=== PATIENT | female | born 1990 | race Caucasian/White ===

== ENCOUNTER 2017-06-16 19:08 | Emergency (ER) | payer MEDICAID ==
[~2017-06-16] VITALS: Ht 149.9 cm; Wt 77.6 kg
[2017-06-16 19:25] VITALS: Ht 149.9 cm; Wt 77.6 kg
[2017-06-16 20:59] LABS: PLATELET COUNT 229 x10^3mcL (130-400); RED CELL DISTRIBUTION WIDTH 12.5 % (11.5-14.5)
[2017-06-16 21:05] LABS: BASOPHIL % 2.3 % (0-2)
[2017-06-16 21:09] LABS: CARBON DIOXIDE 27.6 mmol/L (21-32); CHLORIDE SERUM 105 mmol/L (98-107); CREATININE SERUM 0.8 mg/dL (0.6-1.0); GFR1 > 60 mL/min; GLUCOSE SERUM 107 mg/dL (74-106); POTASSIUM SERUM 3.8 mmol/L (3.5-5.1); SODIUM SERUM 142 mmol/L (136-145)
[2017-06-16 21:15] LABS: ALBUMIN 3.7 g/dL (3.4-5.0); ALKALINE PHOSPHATASE 72 U/L (46-116); ALT/SGPT 65 U/L (14-59); AST/SGOT 35 U/L (15-37); BILIRUBIN TOTAL 0.2 mg/dL (0.20-1.00); TOTAL PROTEIN, SERUM 7.4 g/dL (6.4-8.2)
[2017-06-16 21:51] VITALS: BP 126/86
== END 2017-06-16 21:51 | disposition home or self-care (01) ==
LOC: ED 19:08
PROVIDERS: Emergency Medicine
DX: K62.5 Hemorrhage of anus and rectum (principal); S30.0XXA Contusion of lower back and pelvis, initial encounter; X58.XXXA Exposure to other specified factors, initial encounter; Y93.89 Activity, other specified; Y92.89 Other specified places as the place of occurrence of the external cause; Y99.8 Other external cause status
CPT/HCPCS: 36415

== ENCOUNTER 2017-07-22 01:03 | Emergency (ER) | payer MEDICAID ==
[~2017-07-22] VITALS: Ht 149.9 cm; Wt 78.1 kg
[2017-07-22 01:12] VITALS: Ht 149.9 cm; Wt 78.1 kg
[2017-07-22 03:06] LABS: CALCIUM 8.7 mg/dL (8.5-10.1); CARBON DIOXIDE 22.5 mmol/L (21-32); CHLORIDE SERUM 105 mmol/L (98-107); CREATININE SERUM 0.6 mg/dL (0.6-1.0); GFR1 > 60 mL/min; GLUCOSE SERUM 116 mg/dL (74-106); POTASSIUM SERUM 3.7 mmol/L (3.5-5.1); SODIUM SERUM 140 mmol/L (136-145)
[2017-07-22 03:10] LABS: ALBUMIN 3.5 g/dL (3.4-5.0); ALKALINE PHOSPHATASE 70 U/L (46-116); ALT/SGPT 67 U/L (14-59); AMYLASE 37 U/L (25-115); AST/SGOT 36 U/L (15-37); BILIRUBIN TOTAL 0.17 mg/dL (0.20-1.00); LIPASE 110 IU/L (73-393); TOTAL PROTEIN, SERUM 6.9 g/dL (6.4-8.2)
[2017-07-22 03:21] LABS: UA SPECIFIC GRAVITY <=1.005 (1.005-1.035); microscopic required? YES; urine erythrocyte NEGATIVE (NEGATIVE)
[2017-07-22 03:24] LABS: RED CELL DISTRIBUTION WIDTH 11.8 % (11.5-14.5)
[2017-07-22 03:29] LABS: BASOPHIL % 1.8 % (0-2); PLATELET COUNT 196 x10^3mcL (130-400)
[2017-07-22 03:50] LABS: AMPHETAMINE QUAL UR NONE DETECTED (NEG <=1000)
[2017-07-22 05:27] VITALS: BP 122/80
== END 2017-07-22 05:27 | disposition home or self-care (01) ==
LOC: ED 01:03
PROVIDERS: Emergency Medicine
DX: R51 Headache (principal); R10.12 Left upper quadrant pain; R11.10 Vomiting, unspecified; R20.0 Anesthesia of skin; J45.909 Unspecified asthma, uncomplicated; M54.5 Low back pain
CPT/HCPCS: 83880; J2405; J2550; J3010; J7030

== ENCOUNTER 2017-08-08 20:02 | Emergency (ER) | payer MEDICAID ==
[~2017-08-08] VITALS: Ht 154.9 cm; Wt 78.1 kg
[2017-08-08 20:24] VITALS: Ht 154.9 cm; Wt 78.1 kg
[2017-08-08 21:11] VITALS: BP 129/84
== END 2017-08-08 21:11 | disposition home or self-care (01) ==
LOC: ED 20:02
DX: S00.03XA Contusion of scalp, initial encounter (principal); J45.909 Unspecified asthma, uncomplicated; W19.XXXA Unspecified fall, initial encounter; Y93.89 Activity, other specified; Y92.89 Other specified places as the place of occurrence of the external cause; Y99.8 Other external cause status

== ENCOUNTER 2017-12-07 22:24 | Emergency (ER) | payer MEDICAID ==
[~2017-12-07] VITALS: Ht 152.4 cm; Wt 79.4 kg
[2017-12-07 22:25] VITALS: Ht 152.4 cm; Wt 79.4 kg
[2017-12-07 23:08] LABS: BASOPHIL % 0.2 % (0-2); PLATELET COUNT 194 x10^3mcL (130-400); RED CELL DISTRIBUTION WIDTH 12.8 % (11.5-14.5)
[2017-12-07 23:13] LABS: CALCIUM 8.4 mg/dL (8.5-10.1); CARBON DIOXIDE 24.7 mmol/L (21-32); CHLORIDE SERUM 101 mmol/L (98-107); CREATININE SERUM 0.7 mg/dL (0.6-1.0); GFR1 > 60 mL/min; GLUCOSE SERUM 114 mg/dL (74-106); POTASSIUM SERUM 3.5 mmol/L (3.5-5.1); SODIUM SERUM 137 mmol/L (136-145)
[2017-12-07 23:17] LABS: ALBUMIN 3.8 g/dL (3.4-5.0); ALKALINE PHOSPHATASE 74 U/L (46-116); ALT/SGPT 128 U/L (14-59); AST/SGOT 70 U/L (15-37); BILIRUBIN TOTAL 0.3 mg/dL (0.20-1.00); LIPASE 80 IU/L (73-393); TOTAL PROTEIN, SERUM 7.4 g/dL (6.4-8.2)
[2017-12-07 23:42] LABS: UA SPECIFIC GRAVITY >=1.030 (1.005-1.035); microscopic required? YES; urine erythrocyte 1+ (NEGATIVE)
[2017-12-08 02:07] VITALS: BP 122/76
== END 2017-12-08 02:07 | disposition home or self-care (01) ==
LOC: ED 22:24
PROVIDERS: Emergency Medicine
DX: R10.13 Epigastric pain (principal); R11.2 Nausea with vomiting, unspecified; N76.0 Acute vaginitis; J45.909 Unspecified asthma, uncomplicated
CPT/HCPCS: J1885; J2405; J3490; J7030; Q0092

== ENCOUNTER 2018-01-24 16:56 | Emergency (ER) | payer MEDICAID ==
[~2018-01-24] VITALS: Ht 152.4 cm; Wt 79.4 kg
[2018-01-24 17:11] VITALS: Ht 152.4 cm; Wt 79.4 kg
[2018-01-24 17:46] LABS: BASOPHIL % 0.1 % (0-2); PLATELET COUNT 226 x10^3mcL (130-400); RED CELL DISTRIBUTION WIDTH 12.7 % (11.5-14.5)
[2018-01-24 17:55] LABS: CALCIUM 9.3 mg/dL (8.5-10.1); CARBON DIOXIDE 27.7 mmol/L (21-32); CHLORIDE SERUM 102 mmol/L (98-107); CREATININE SERUM 0.6 mg/dL (0.6-1.0); GFR1 > 60 mL/min; GLUCOSE SERUM 127 mg/dL (74-106); POTASSIUM SERUM 3.7 mmol/L (3.5-5.1); SODIUM SERUM 140 mmol/L (136-145)
[2018-01-24 17:59] LABS: ALKALINE PHOSPHATASE 92 U/L (46-116); ALT/SGPT 175 U/L (14-59); AST/SGOT 90 U/L (15-37); BILIRUBIN TOTAL 0.3 mg/dL (0.20-1.00); LIPASE 116 IU/L (73-393)
[2018-01-24 18:03] LABS: TOTAL PROTEIN, SERUM 8.4 g/dL (6.4-8.2)
[2018-01-24 19:00] VITALS: BP 134/52
== END 2018-01-24 19:00 | disposition home or self-care (01) ==
LOC: ED 16:56
PROVIDERS: Emergency Medicine
DX: R10.11 Right upper quadrant pain (principal); R51 Headache; J45.909 Unspecified asthma, uncomplicated
CPT/HCPCS: J1885; J2765

== ENCOUNTER 2018-03-29 17:53 | Emergency (ER) | payer MEDICAID ==
[~2018-03-29] VITALS: Ht 152.4 cm; Wt 76.2 kg
[2018-03-29 18:25] VITALS: Ht 152.4 cm; Wt 76.2 kg
[2018-03-29 20:28] LABS: UA SPECIFIC GRAVITY >=1.030 (1.005-1.035); microscopic required? YES; urine erythrocyte 3+ (NEGATIVE)
[2018-03-29 20:29] LABS: CALCIUM 8.9 mg/dL (8.5-10.1); CARBON DIOXIDE 29.7 mmol/L (21-32); CHLORIDE SERUM 102 mmol/L (98-107); CREATININE SERUM 0.7 mg/dL (0.6-1.0); GFR1 > 60 mL/min; GLUCOSE SERUM 83 mg/dL (74-106); POTASSIUM SERUM 3.4 mmol/L (3.5-5.1); SODIUM SERUM 139 mmol/L (136-145)
[2018-03-29 20:34] LABS: BASOPHIL % 0.4 % (0-2); PLATELET COUNT 211 x10^3mcL (130-400); RED CELL DISTRIBUTION WIDTH 12.8 % (11.5-14.5)
[2018-03-29 22:20] VITALS: BP 143/69
== END 2018-03-29 22:20 | disposition home or self-care (01) ==
LOC: ED 17:53
PROVIDERS: Specialist
DX: O23.41 Unspecified infection of urinary tract in pregnancy, first trimester (principal); O20.8 Other hemorrhage in early pregnancy; O99.511 Diseases of the respiratory system complicating pregnancy, first trimester; J45.909 Unspecified asthma, uncomplicated; G43.909 Migraine, unspecified, not intractable, without status migrainosus; Z3A.01 Less than 8 weeks gestation of pregnancy
CPT/HCPCS: 36415

== ENCOUNTER 2018-06-28 16:34 | Emergency (ER) | payer MEDICAID ==
[~2018-06-28] VITALS: Ht 152.4 cm; Wt 73.5 kg
[2018-06-28 16:51] VITALS: Ht 152.4 cm; Wt 73.5 kg
[2018-06-28 19:35] VITALS: BP 117/65
== END 2018-06-28 19:35 | disposition home or self-care (01) ==
LOC: ED 16:34
DX: R07.89 Other chest pain (principal); R20.2 Paresthesia of skin; J45.909 Unspecified asthma, uncomplicated; G43.909 Migraine, unspecified, not intractable, without status migrainosus; Z88.6 Allergy status to analgesic agent
CPT/HCPCS: 36415; 85378

== ENCOUNTER 2019-03-21 15:34 | Emergency (ER) | payer MEDICAID ==
[~2019-03-21] VITALS: Ht 152.4 cm; Wt 81.2 kg
[2019-03-21 15:45] VITALS: Ht 152.4 cm; Wt 81.2 kg
[2019-03-21 17:54] VITALS: BP 139/90
== END 2019-03-21 17:54 | disposition home or self-care (01) ==
LOC: ED 15:34
DX: L29.9 Pruritus, unspecified (principal); G43.909 Migraine, unspecified, not intractable, without status migrainosus; J45.909 Unspecified asthma, uncomplicated; Z88.6 Allergy status to analgesic agent

== ENCOUNTER 2019-04-19 18:50 | Inpatient (IN) | payer MEDICAID ==
[~2019-04-19] VITALS: Ht 152.4 cm; Wt 82.6 kg
[2019-04-19 20:06] VITALS: Ht 152.4 cm; Wt 82.6 kg
[2019-04-19 20:51] LABS: PLATELET COUNT 233 x10^3mcL (130-400); RED CELL DISTRIBUTION WIDTH 12.7 % (11.5-14.5)
[2019-04-19 21:17] LABS: CALCIUM 8.8 mg/dL (8.5-10.1); CARBON DIOXIDE 27.1 mmol/L (21-32); CHLORIDE SERUM 104 mmol/L (98-107); CREATININE SERUM 0.7 mg/dL (0.6-1.0); GFR1 > 60 mL/min; GLUCOSE SERUM 108 mg/dL (74-106); POTASSIUM SERUM 3.8 mmol/L (3.5-5.1); SODIUM SERUM 137 mmol/L (136-145)
[2019-04-19 21:22] LABS: ALBUMIN 3.9 g/dL (3.4-5.0); ALKALINE PHOSPHATASE 79 U/L (46-116); ALT/SGPT 193 U/L (14-59); AST/SGOT 109 U/L (15-37); BILIRUBIN TOTAL 0.3 mg/dL (0.20-1.00); TOTAL PROTEIN, SERUM 7.8 g/dL (6.4-8.2)
--- NOTE | 2019-04-19 22:30 | NUR ---
PT OFF UNIT TO RADIOLOGY
--- NOTE | 2019-04-20 00:15 | NUR ---
PT LAYING ON GURNEY IN NAD. PT A&0X4, BREATHING EVEN AND UNLABORED. SO AT BEDSIDE. WILL CONTINUE TO MONITOR.
--- NOTE | 2019-04-20 01:48 | NUR ---
PT RESTING ON GURNEY IN NAD. PT A&0X4, SPEAKING FULL CLEAR SENTENCES. PT BREATHING EVEN AND UNLABORED. PT FAMILY AT BEDSIDE. WILL CONTINUE TO MONITOR.
--- NOTE | 2019-04-20 02:54 | NUR ---
PT C/O NAUSEA AT THIS TIME. MD RYAN MADE AWARE. AWAITING FURTHER ORDERS AT THIS TIME.
--- NOTE | 2019-04-20 05:12 | NUR ---
PT MEDICATED PER MD ORDERS. PT TOLERATED WELL. WILL CONTINUE TO MONITOR.
--- NOTE | 2019-04-20 05:17 | NUR ---
RECEIVED REPORT FROM ER NURSE, WESTON. AWAITING PTS ARRIVAL.
--- NOTE | 2019-04-20 05:17 | NUR ---
REPORT GIVEN TO IDALIA PINEDA
[2019-04-20] MEDS ORDERED: ALBUTEROL0.63 MG/3 (05:18)
[2019-04-20 05:35] VITALS: BP 132/84
--- NOTE | 2019-04-20 05:35 | NUR ---
RECEIVED PT FROM ED VIA ELANA ACCOMPANIED BY NURSE AND . CC: DAMON ABD INTERMITTENT CRAMPING, DESCRIBES THE PAIN CONTRACTION PAIN. PT STATED SHE WAS EATING AND IT HAPPENED SUDDENLY. PT IS AAOX4. SPEECH IS CLEAR. DENIES GRAMAJO. ON TELE #36 READING SR WITH ELEVATED T WAVES. HR 84. DENIES CHEST PAIN/PRESSURE. PULSES ARE PALPABLE. SWELLING NOTED TO BLE. BREATHING IS EVEN AND UNLABORED ON RA. LUNG SOUNDS CTA. DENIES SOB. NO RESP DISTRESS NOTED. ABD IS SOFT, ROUND, AND NONDISTENDED. L SIDE MORE TENDER TO TOUCH. BS ACTIVE. LAST BM WAS YESTERDAY, FORMED STOOL. VOIDS FREELY. DENIES DYSURIA. AMBULATORY. MILD GENERALIZED WEAKNESS. SKIN INTACT. C/O SHARP, CRAMPING, LOWER ABD PAIN 8/10. WILL MEDICATE PER MAR ORDER. IV TO RAC DRY AND INTACT. NO ERYTHEMA NOTED. BED IN LOWEST POSITION. CALL LIGHT WITHIN REACH. ORIENTED PT TO ROOM AND SURROUNDINGS. ALL QUESTIONS AND CONCERNS ANSWERED. WILL CONTINUE TO MONITOR.
[2019-04-20 05:36] LABS: microscopic required? YES; urine erythrocyte NEGATIVE (NEGATIVE)
--- NOTE | 2019-04-20 05:40 | NUR ---
PT TRANSFERED TO TELE AT THIS TIME VIA GURNEY BY MYSELF ACCOMPANIED BY PT . PT AND FAMILY VERBALIZED UNDERSTANDING OF PLAN OF CARE. PT AMBULATED FROM ED GURNEY TO TELE BED WITH STEADY GAIT. PT A&0X4, SPEAKING FULL CLEAR SENTENCES. PT BREATHING EVEN AND UNLABORED. TRANSPORT CM IN PLACE. IV INTACT AND FLUSHES WITH NO COMPLICATIONS. IDALIA RN AT BEDSIDE TO ASSUME CARE OF PT.
[2019-04-20 06:21] VITALS: BP 132/84
--- NOTE | 2019-04-20 06:38 | NUR ---
DR BROWNLEE IN TO SEE PT. PER DR BROWNLEE, OK TO HAVE FEW ICE CHIPS, ADMIN NORCO FOR PTS 8/10 PAIN, AND TO HOLD IV FLUIDS UNTIL LACTIC ACID LABS COME BACK. WILL CONTINUE TO MONITOR AND ENDORSE CARE TO DAY SHIFT NURSE.
--- NOTE | 2019-04-20 06:50 | NUR ---
PT SLEPT IN LONG INTERVALS THROUGHOUT THE NIGHT AND COMPLIED WITH NURSING CARE WITH NO ACUTE EVENTS OCCURRING DURING THE SHIFT. ALL NEEDS ASSESSED AND ATTENDED TO. COMFORT AND SAFETY MEASURES MAINTAINED. WILL CONTINUE TO MONITOR AND ENDORSE CARE TO DAY SHIFT NURSE.
--- NOTE | 2019-04-20 07:20 | NUR ---
RECEIVED PT FROM AUTO PARTS HANDLER. PT AWAKE, ALERT. A/OX4, SLEEPY. PT ON ROOM AIR WITH NO RESP DISTRESS NOTED. IV ACCESS RAC, CDI INFUSING NS AT 100ML/HR. PT ON TELE 36 WITH NO CHEST PAIN NOTED. PERIPHERAL PULSES PALPABLE, NON PITTING EDEMA NOTED TO BUE/BLE. ACTIVE BS NOTED. PT DENIES ISSUES WITH ELIMINATION. PT REPORTS PAIN TO LEFT ABDOMEN THAT IS INTERMITTANT. TOLERABLE AT THIS TIME. PT AMBULATORY. FAMILY AT BEDSIDE. SAFETY MEASURES IN PLACE, BED LOW AND LOCKED. CALL LIGHT WITHIN REACH.
--- NOTE | 2019-04-20 07:20 | NUR ---
RECEIVED PT FROM TIPPING MACHINE OPERATOR AUTOMATIC. PT AWAKE, ALERT. A/OX4, SLEEPY. PT ON ROOM AIR WITH NO RESP DISTRESS NOTED. IV ACCESS RAC, SALINE LOCKED AT THIS TIME. PER NOTES, WAITING FOR LACTIC ACID TO COME BACK BEFORE STARTING FLUIDS. PT ON TELE 36 WITH NO CHEST PAIN NOTED. PERIPHERAL PULSES PALPABLE, NON PITTING EDEMA NOTED TO BUE/BLE. ACTIVE BS NOTED. PT DENIES ISSUES WITH ELIMINATION. PT REPORTS PAIN TO LEFT ABDOMEN THAT IS INTERMITTANT. TOLERABLE AT THIS TIME. PT AMBULATORY. FAMILY AT BEDSIDE. SAFETY MEASURES IN PLACE, BED LOW AND LOCKED. CALL LIGHT WITHIN REACH.
[2019-04-20 08:39] VITALS: BP 111/74
--- NOTE | 2019-04-20 10:51 | NUR ---
PT COMPLAINING OF PAIN TO ABDOMEN 10/25. MORPHINE 2MG ADMINISTERED IVP PRN ORDERED. WILL MONITOR. FAMILY AT BEDSIDE.
[2019-04-20 11:32] LABS: MAGNESIUM 1.9 mg/dL (1.8-2.4); PHOSPHOROUS 3.8 mg/dL (2.5-4.9)
--- NOTE | 2019-04-20 11:37 | NUR ---
PT REPORTS PAIN IS TOLERABLE AT THIS TIME AFTER ADMINISTRATION OF MORPHINE. PT STATES PAIN IS 4/10 AT THIS TIME.
[2019-04-20 12:30] VITALS: BP 120/77
--- NOTE | 2019-04-20 13:33 | NUR ---
PHARMACY CALLED TO VERIFY PT ALLERGY TO IBUPROPHEN. PER DR BROWNLEE PT DOES NOT HAVE TRUE ALLERGY TO IBUPROPHEN, PHARMACY MADE AWARE.
--- NOTE | 2019-04-20 15:03 | NUR ---
IV FLUIDS STARTED AT THIS TIME. PT AGREEABLE TO FLUIDS. PT REPORTS SWELLING AND NUMBNESS TO LEFT ARM. WILL MONITOR.
[2019-04-20 16:30] VITALS: BP 108/62
--- NOTE | 2019-04-20 16:48 | NUR ---
TELEMETRY BOX REMOVED AND RETURNED TO NETWORK IN[employer]RA[employer]CTURE ARCHITECT. PT TRANSFERRED TO [facility]
--- NOTE | 2019-04-20 17:52 | NUR ---
PT REPORTS PAIN IS TOLERABLE AT THIS TIME. PT UP EATING DINNER AT THIS TIME. FAMILY AT BEDSIDE. SAFETY MEASURES MAINTAINED.
--- NOTE | 2019-04-20 18:46 | NUR ---
PT STABLE AT THIS TIME. ALL NEEDS TENDED TO THROUGHOUT SHIFT. WILL CONTINUE TO MONITOR AND ENDORSE CARE TO YARN WRAPPER.
--- NOTE | 2019-04-20 19:30 | NUR ---
RECIEVED PT RESTING IN BED, NO ACUTE DISTRESS NOTED. PT AOX4, DENIES GRAMAJO/DIZZINESS. PT MEDSURG, DENIES CP. PULSES PALPABLE BILAT, DENIES NUMBNESS/TINGLING IN FEET. PT REPORTS INCREASED SWELLING IN BUE, TRACE EDEMA BLE. RESP EVEN AND UNLABORED ON RA, DENIES SOB. ABD SOFT, ROUND, REPROTS LEFT SIDE TENDERNESS WITH PALPATION, REPORTS LAST MENSTRUAL CYCLE= 03/31/19, FLIGHT TOWER DISPATCHER THAN USUAL. PT REPORTS GETTING OFF "THE PILL" LAST MONTH SICNE HER AND SIGNIFICANT OTHER ARE TRYING TO CONCEIVE. AMB, SKIN INTACT. IV SITE TO THE RAC, NS @ 100ML/HR. NO REDNESS, SWELLING OR PAIN NOTED. ALL COMFORT AND SAFETY MEASURES PROVIDED FOR, CALL LIGHT WITHIN REACH, WILL CONTINUE TO MONITOR.
[2019-04-20 20:55] VITALS: BP 111/63
--- NOTE | 2019-04-21 | NUR ---
PT RESTING WITH EYES CLOSED, S/S OF PAIN NOTED. RESP EVEN AND UNLABORED ON RA, IV SITE REMAINS FREE OF REDNESS, SWELLING. NS @ 100ML/HR. NO REDNESS, SWELLING OR PAIN NOTED. ENVIRONMENT FREE OF CLUTTER, CALL LIGHT WITHIN REACH, BED IN LOWEST POSITION, WILL CONTINUE TO MONITOR.
--- NOTE | 2019-04-21 05:05 | NUR ---
PT RESTED IN INTERVALS DURING SHIFT, NO ACUTE CHANGES OCCURRING OVERNIGHT. PT DENIES N/V/D. PT HAS INTERMITTENT LEFT SIDED ABD PAIN, DENIES THE NEED FOR PAIN MEDICATIONS DURING SHIFT. IV SITE TO THE RAC REMAINS PATENT, NS @ 100ML/HR. NO REDNESS, SWELLING OR PAIN NOTED. ALL COMFORT AND SAFETY MEASURES PROVIDED FOR, CALL LIGHT WITHIN REACH, BED IN LOWEST POSITION, WILL CONTINUE TO MONITOR.
[2019-04-21 05:37] VITALS: BP 106/65
[2019-04-21 06:22] LABS: BASOPHIL % 0.4 % (0-2); PLATELET COUNT 192 x10^3mcL (130-400); RED CELL DISTRIBUTION WIDTH 12.8 % (11.5-14.5)
[2019-04-21 06:45] LABS: CALCIUM 8.4 mg/dL (8.5-10.1); CHLORIDE SERUM 106 mmol/L (98-107); CREATININE SERUM 0.5 mg/dL (0.6-1.0); GFR1 > 60 mL/min; GLUCOSE SERUM 78 mg/dL (74-106); MAGNESIUM 2.1 mg/dL (1.8-2.4); PHOSPHOROUS 4.7 mg/dL (2.5-4.9); SODIUM SERUM 139 mmol/L (136-145)
--- NOTE | 2019-04-21 08:00 | NUR ---
OX4. NO SOB AT RM AIR. DENIES PAIN THAT REQUIRES PAIN MED. REPORTS LLQ ABD PAIN ON/OFF. VOIDS FREELY AND DENIES PROBLEM. NSS AT 100 ML/HR INFKUSING. RAC SITE PATENT AND WITHOUT INFILTRATION. WILL CONTINUE TO MONITOR STATUS. NSG ASSESSMENT DONE.
[2019-04-21 09:22] VITALS: BP 128/77
[2019-04-21 12:35] VITALS: BP 111/55
--- NOTE | 2019-04-21 13:00 | NUR ---
NO NEW ACUTE CHANGES IN STATUS. NO C/O PAIN.
[2019-04-21 17:04] VITALS: BP 135/87
--- NOTE | 2019-04-21 19:30 | NUR ---
RECIEVED PT RESTING IN BED, REPORTING SHARP, INTERMITTENT ABD PAIN. WILL MEDICATE PER ORDER. PT AOX4, DENIES GRAMAJO/DIZZINESS. PT MEDSURG, DENIES CP. PULSES PALPABLE BILAT, DENIES NUMBNESS/TINGLING IN FEET. RESP EVEN AND UNLABORED ON RA, DENIES SOB. ABD SOFT, ROUND, REPROTS LEFT SIDE TENDERNESS WITH PALPATION, REPORTS LAST MENSTRUAL CYCLE= 03/31/19, POLICE LIAISON OFFICER THAN USUAL. PT REPORTS GETTING OFF "THE PILL" LAST MONTH SICNE HER AND SIGNIFICANT OTHER ARE TRYING TO CONCEIVE. AMB, SKIN INTACT. IV SITE TO THE RAC, NS @ 100ML/HR. NO REDNESS, SWELLING OR PAIN NOTED. ALL COMFORT AND SAFETY MEASURES PROVIDED FOR, CALL LIGHT WITHIN REACH, WILL CONTINUE TO MONITOR.
--- NOTE | 2019-04-21 19:46 | NUR ---
CONVERSING WITH MALE VISITOR; NO NEW ACUTE CHANGES IN STATUS.
[2019-04-21 21:09] VITALS: BP 129/61
--- NOTE | 2019-04-22 00:05 | NUR ---
PT RESTING IN BED, NO ACUTE DISTRESS NOTED. PT REPORTS PAIN INTERMITTENTLY YET DENIES THE NEED FOR PAIN MEDS AT THIS TIME, EDUCATED PT IN REGARDS TO PAIN MANAGEMENT AND THE NECESSITY OF SLEEP, PT VERABLIZES UNDERSTANDING AND WILL USE THE CALL LIGHT IF THE PAIN DOES NOT SUBSIDE, PERSONAL BELONGINGS WITHIN REACH, BED IN LOWEST POSITION, CLUTTER FREE ENVIRONMENT, WILL CONTINUE TO MONITOR.
[2019-04-22 04:44] VITALS: BP 111/55
--- NOTE | 2019-04-22 05:35 | NUR ---
PT RESTED IN INTERVALS DURING SHIFT, NO ACUTE CHANGES OCCURRING OVERNIGHT. PT REPORTS PAIN UNDER CONTROL AT THIS TIME, DENIES THE NEED FOR PAIN MEDS WHILE AT REST. IV SITE REMIANS PATENT TO [facility], NO REDNESS, SWELLING OR PAIN NOTED. PT DENIES N/V/D. ALL COMFORT AND SAFETY MEASURES PROVIDED FOR, CALL LIGHT WITHIN REACH, BED IN LOWST POSITION, WILL CONTINUE TO MONITOR.
--- NOTE | 2019-04-22 07:30 | NUR ---
RECEIVED REPORT FROM NURSE PATIENT LYING IN BED A&O X4, C/O 09/25 ABD PAIN CRAMP LIKE WILL MEDICATE WITH MED PER JUN. IV ON LAC PATENT AND INTACT. NO S/S OF ANY RESPIRATORY DISTRESS, CHEST RISE EQUAL AND UNLABORED. ABD SOFT AND FLAT, ACTIVE SOUNDS IN ALL 4 QUADS. LUNGS CTA BILAT ON RA. ALL QUESTIONS AND CONCERNS ADDRESSED AT THIS TIME. BED INLOWEST POSITION CALL LIGHT WITHIN REACH. WILL CONTINUE TO MONITOR.
[2019-04-22 08:59] VITALS: BP 118/83
--- NOTE | 2019-04-22 09:15 | NUR ---
PATIENT LYING IN BED WITH EYE CLOSED DENIES ANY PAIN AT THIS TIME. ALL NEEDS ATTENDED TO. SAFETY PRECAUTIONS IN PLACE. BED IN LOWEST POSITION. WILL CONTINUE TO MONITIOR.
[2019-04-22] MEDS ORDERED: TRAMADOL HCL50 MG PO (09:35)
[2019-04-22 12:07] VITALS: BP 118/83
[2019-04-22 12:14] VITALS: BP 119/62
--- NOTE | 2019-04-22 12:22 | NUR ---
Discharge instructions and prescriptions given to patient and family both verbalized understanding.IV d/c'd dressing applied catheter was intact, patient tolerated well. All questions and concerns addressed. Personal belongings taken with patient. Patient escorted to lobby with .
== END 2019-04-22 12:50 | disposition home or self-care (01) | DRG 532 ==
LOC: ED 18:50 → DU 04-20 04:33 → MU 04-20 04:33 → DU 04-20 05:36 → MU 04-20 16:47
PROVIDERS: ADMIT Internal Medicine
DX: N83.202 Unspecified ovarian cyst, left side (principal); K76.0 Fatty (change of) liver, not elsewhere classified; J45.909 Unspecified asthma, uncomplicated; R74.0 Nonspecific elevation of levels of transaminase and lactic acid dehydrogenase [LDH]; Z68.35 Body mass index [BMI] 35.0-35.9, adult
CPT/HCPCS: G0378; J2270; J2405; J3010; J7030; Q0092; Q0162

== ENCOUNTER 2019-04-23 19:17 | Emergency (ER) | payer MEDICAID ==
[~2019-04-23] VITALS: Ht 152.4 cm; Wt 81.2 kg
[~2019-04-23 19:17] MED LIST: ALBUTEROL0.63 MG/3; TRAMADOL HCL50 MG PO
[2019-04-23 20:14] VITALS: Ht 152.4 cm; Wt 81.2 kg
[2019-04-23 20:48] LABS: BASOPHIL % 1.8 % (0-2); PLATELET COUNT 234 x10^3mcL (130-400); RED CELL DISTRIBUTION WIDTH 12.6 % (11.5-14.5)
[2019-04-23 21:01] LABS: ALKALINE PHOSPHATASE 72 U/L (46-116); ALT/SGPT 161 U/L (14-59); AST/SGOT 74 U/L (15-37); BILIRUBIN TOTAL 0.3 mg/dL (0.20-1.00); CARBON DIOXIDE 27.4 mmol/L (21-32); CHLORIDE SERUM 101 mmol/L (98-107); CREATININE SERUM 0.7 mg/dL (0.6-1.0); GFR1 > 60 mL/min; GLUCOSE SERUM 151 mg/dL (74-106); LIPASE 129 IU/L (73-393); POTASSIUM SERUM 3.8 mmol/L (3.5-5.1); SODIUM SERUM 137 mmol/L (136-145); TOTAL PROTEIN, SERUM 8.1 g/dL (6.4-8.2)
[2019-04-24 00:22] LABS: UA SPECIFIC GRAVITY 1.025 (1.005-1.035); microscopic required? YES; urine erythrocyte TRACE (NEGATIVE)
[2019-04-24 02:21] VITALS: BP 126/80
== END 2019-04-24 02:21 | disposition home or self-care (01) ==
LOC: ED 19:17
PROVIDERS: Emergency Medicine
DX: N39.0 Urinary tract infection, site not specified (principal); J45.909 Unspecified asthma, uncomplicated; G43.909 Migraine, unspecified, not intractable, without status migrainosus; Z88.6 Allergy status to analgesic agent
CPT/HCPCS: 36415; Q0092

== ENCOUNTER 2020-06-05 09:50 | Emergency (ER) | payer MEDICAID ==
[~2020-06-05] VITALS: Ht 165.1 cm; Wt 83.9 kg
[~2020-06-05 09:50] MED LIST changes: +NOR10T PO; +NORCO 10-325 T1 EACH
[2020-06-05 10:00] VITALS: Ht 165.1 cm; Wt 83.9 kg
[2020-06-05] MEDS ORDERED: ULTRAM50 MG PO (11:18)
[2020-06-05] MEDS ORDERED: MACROBID100 MG PO (11:18)
[2020-06-05 14:12] VITALS: BP 130/75
== END 2020-06-05 14:12 | disposition home or self-care (01) ==
LOC: ED 09:50
DX: S20.212A Contusion of left front wall of thorax, initial encounter (principal); S06.0X0A Concussion without loss of consciousness, initial encounter; N39.0 Urinary tract infection, site not specified; R10.12 Left upper quadrant pain; R11.10 Vomiting, unspecified; J45.909 Unspecified asthma, uncomplicated; G43.909 Migraine, unspecified, not intractable, without status migrainosus; Z88.6 Allergy status to analgesic agent; V48.0XXA Car driver injured in noncollision transport accident in nontraffic accident, initial encounter; Y93.I9 Activity, other involving external motion; Y92.488 Other paved roadways as the place of occurrence of the external cause; Y99.8 Other external cause status